=== PATIENT | female | born 1950 | race Caucasian/White ===

== ENCOUNTER → 2017-01-09 | Outpatient (CLI) | payer MEDICARE, OTHER ==
--- NOTE | 2017-01-09 16:18 | REP ---
Low-dose lung cancer screening chest CT without contrast: History: Tobacco use. Comparison chest x-ray May 01, 2016. CT findings: There are a few emphysematous bullae in each lung apex, right more so than left. There is a granulomatous calcification in the right upper lobe laterally. There is a 3 mm noncalcified nodule in the left lower lobe on image #69 of 103 of today's exam. This merits interval follow-up. There is a second right upper lobe granulomatous calcification seen. No other noncalcified pulmonary nodule is noted. No mass lesion is seen. No endobronchial abnormality is observed. Impression: Positive, abnormal lung cancer screening chest CT. 3 mm noncalcified pulmonary nodule in the left lower lobe. LUNG RADS category II. Follow-up chest CT study recommended by [employer] criteria in 1 year. Signed by Quang Peralta MD 01/09/2017 05:01 P
== END ==
LOC: M RAD 13:15
PROVIDERS: ATTEND Nurse Practitioner Family
DX: Z12.2 Encounter for screening for malignant neoplasm of respiratory organs (principal); R91.8 Other nonspecific abnormal finding of lung field; Z87.891 Personal history of nicotine dependence

== ENCOUNTER → 2017-01-20 | Outpatient (CLI) | payer MEDICARE ==
--- NOTE | 2017-01-21 09:00 | DEXA ---
AP SPINE L1 - L4 0.921 -2.2 -0.2 LT FEMUR TOTAL 0.610 -3.2 -1.6 RT FEMUR TOTAL 0.596 -3.3 -1.7 TOTAL BODY TOTAL OTHER DUAL FEMUR FRAX* ASSESSMENT Risk factors: Tobacco use, premature menopause. 10 year probability of fracture Major osteoporotic fracture 16.1 % Hip fracture 7.2 % COMMENTS: There is low bone density of the spine. There is osteoporosis of the hips. The decreased density of the spine does represent a significant change. The decreased density of the left hip does represent a significant change. The decreased density of the right hip does represent a significant change. The density of the spine has decreased 16.2% since the initial exam on 08/2000. The spine density has decreased 4.8% since the most recent exam on 06/2010. The density of the left hip has decreased 26.8% since the initial exam on 1999. The density of the left hip has decreased 13.0% since the most recent exam on . The density of the right hip has decreased 29.5% since the initial exam on 1999. The density of the right hip has decreased 15.2% since the most recent exam on 06/2010. FOLLOW-UP: Recommendation for the next bone density exam: 2 years. LAURA
== END ==
LOC: M WHC 08:47
PROVIDERS: ATTEND Nurse Practitioner Family
DX: M85.89 Other specified disorders of bone density and structure, multiple sites (principal); Z78.0 Asymptomatic menopausal state

== ENCOUNTER → 2017-01-22 | Outpatient (REF) | payer MEDICARE ==
[2017-01-22 11:28] LABS: ALBUMIN 3.8 GM/DL (3.2-5.2); ALBUMIN/GLOBULIN RATIO 1.23 (1.00-1.93); BILIRUBIN,TOTAL 0.7 MG/DL (0.2-1.0); CALCIUM LEVEL 9.5 MG/DL (8.8-10.2); CREATININE FOR GFR 1.26 MG/DL (0.55-1.02); GLOMERULAR FILTRATION RATE 45.2 (>45); POTASSIUM SERUM 4.6 MEQ/L (3.5-5.1); TOTAL PROTEIN 6.9 GM/DL (6.4-8.2)
== END ==
LOC: M SFHCPLAZ 08:14
PROVIDERS: ATTEND Nurse Practitioner Family
DX: I10 Essential (primary) hypertension (principal); E78.2 Mixed hyperlipidemia; E55.9 Vitamin D deficiency, unspecified

== ENCOUNTER → 2017-11-24 | Outpatient (REF) | payer MEDICARE ==
[2017-11-24 12:16] LABS: TOTAL 25(OH) VITAMIN D 24.5 NG/ML (30.0-100.0)
[2017-11-24 12:41] LABS: ALBUMIN 3.6 GM/DL (3.2-5.2); ALBUMIN/GLOBULIN RATIO 1.16 (1.00-1.93); ALKALINE PHOSPHATASE 92 U/L (45-117); ALT/SGPT 18 U/L (12-78); ANION GAP 7 MEQ/L (8-16); AST/SGOT 20 U/L (7-37); BILIRUBIN,TOTAL 0.6 MG/DL (0.2-1.0); BLOOD UREA NITROGEN 26 MG/DL (7-18); CARBON DIOXIDE LEVEL 27 MEQ/L (21-32); CHLORIDE LEVEL 107 MEQ/L (98-107); CHOLESTEROL LEVEL 233 MG/DL (<200); CHOLESTEROL RISK RATIO 3.106 (<5); FREE T4 1.22 NG/DL (0.76-1.46); GLOMERULAR FILTRATION RATE 47.7 (>45); GLUCOSE, FASTING 89 MG/DL (70-100); HDL CHOLESTEROL 75 MG/DL (>40); LDL CHOLESTEROL 142.8 MG/DL (<100); NON-HDL-C 158 MG/DL; POTASSIUM SERUM 4.7 MEQ/L (3.5-5.1); SODIUM LEVEL 141 MEQ/L (136-145); TOTAL PROTEIN 6.7 GM/DL (6.4-8.2); TRIGLYCERIDES LEVEL 76 MG/DL (<150)
== END ==
LOC: M SFHCPLAZ 07:56
DX: I10 Essential (primary) hypertension (principal); E78.2 Mixed hyperlipidemia; E55.9 Vitamin D deficiency, unspecified
CPT/HCPCS: 84443

== ENCOUNTER → 2018-01-12 | Outpatient (CLI) | payer MEDICARE | LOC: M RAD 13:25 | DX: R91.1 Solitary pulmonary nodule (principal) | CPT/HCPCS: 71250 ==

== ENCOUNTER → 2020-10-07 | Outpatient (CLI) | payer MEDICARE | LOC: M LABSMTC 08:22 | PROVIDERS: ATTEND Family Medicine | DX: Z20.822 Contact with and (suspected) exposure to COVID-19 (principal) ==

== ENCOUNTER → 2020-11-24 | Outpatient (REF) | payer MEDICARE ==
[2020-11-24 12:36] LABS: ALBUMIN 3.9 GM/DL (3.2-5.2); BILIRUBIN,TOTAL 0.4 MG/DL (0.2-1.0); CALCIUM LEVEL 9.4 MG/DL (8.8-10.2); CHOLESTEROL RISK RATIO 3.433 (<5); CREATININE FOR GFR 1.21 MG/DL (0.55-1.30); FREE T4 1.13 NG/DL (0.76-1.46); GLOMERULAR FILTRATION RATE 46.8 (>39); POTASSIUM SERUM 5.4 MEQ/L (3.5-5.1); THYROID STIMULATING HORMONE 0.892 uIU/ML (0.358-3.740); TOTAL 25(OH) VITAMIN D 31.1 NG/ML (30.0-100.0); TOTAL PROTEIN 6.7 GM/DL (6.4-8.2)
[2020-11-24 12:42] LABS: MAU/CREAT RATIO 129.7 MCG/MG (0.0-30.0)
== END ==
LOC: M PLALAB 08:17
PROVIDERS: ATTEND Nurse Practitioner Family
DX: I12.9 Hypertensive chronic kidney disease with stage 1 through stage 4 chronic kidney disease, or unspecified chronic kidney disease (principal); F41.1 Generalized anxiety disorder; E78.2 Mixed hyperlipidemia; N18.31 Chronic kidney disease, stage 3a; E55.9 Vitamin D deficiency, unspecified

== ENCOUNTER → 2020-12-05 | Outpatient (REF) | payer MEDICARE ==
[2020-12-05 11:31] LABS: CALCIUM LEVEL 9.9 MG/DL (8.8-10.2); CREATININE FOR GFR 1.18 MG/DL (0.55-1.30); GLOMERULAR FILTRATION RATE 48.2 (>39); POTASSIUM SERUM 4.5 MEQ/L (3.5-5.1)
== END ==
LOC: M SFHCPLAZ 08:28
PROVIDERS: ATTEND Nurse Practitioner Family
DX: E87.5 Hyperkalemia (principal)

== ENCOUNTER → 2020-12-12 | Outpatient (CLI) | payer MEDICARE ==
--- NOTE | 2020-12-12 09:29 | REP ---
INDICATION: CIGARETTE NICOTINE DEPENDENCE. COMPARISON: Low-dose lung screening chest CT dated 01/09/[address] without IV contrast dated 01/12/2018. TECHNIQUE: The study is performed without IV contrast. Images are presented at lung windowing only. FINDINGS: The known left lower lobe lung nodule is again identified on image 70. It is unchanged in size from both prior studies again measuring 3.5 mm in diameter. Maximal Hounsfield density of this nodule today is 272 units compatible with a calcifying nodule. This is a category 2 lung nodule with the probability of malignancy less than 1%. There is a calcified granuloma laterally in the right upper lobe on image 42, unchanged from both prior studies. There is a calcified granuloma anteriorly in the left upper lobe on image 39, unchanged from both prior studies. There is a tiny noncalcified 2 mm nodule anteriorly in the right upper lobe on image 28, unchanged from both prior studies. This is a category 2 lung nodule with the probability of malignancy less than 1%. IMPRESSION: There are multiple small lung nodules as described, all category 2 lung nodules with the probability of malignancy less than 1%. There are calcified granulomas as described. These are also category 2 lung nodules with the probability of malignancy less than 1%. There are no new lung nodules or masses. There are no infiltrates or effusions. Overall this is a category 2 low-dose lung screening CT of the chest with the probability of malignancy less than 1%. Depending on risk factors consider continued follow-up annual low-dose lung screening chest CT. <Electronically signed by Humberto Flood > 12/12/20 [id number]
== END ==
LOC: M RAD 08:13
PROVIDERS: ATTEND Nurse Practitioner Family
DX: Z12.2 Encounter for screening for malignant neoplasm of respiratory organs (principal); F17.210 Nicotine dependence, cigarettes, uncomplicated

== ENCOUNTER → 2021-01-01 | Outpatient (CLI) | payer MEDICARE ==
--- NOTE | 2021-01-01 14:57 | REPMRS ---
Patient History The patient states she has not had a clinical breast exam in over a year. No known family history of cancer. 3D TOMOSYNTHESIS WAS PERFORMED. [facility] lifetime risk for breast cancer is 2.2%. Volpara breast density C. Digital Woman Screen Mammo: January 01, 2021 - Exam #: [id number] Bilateral CC and MLO view(s) were taken. Technologist: Ping Tyson, Technologist Prior study comparison: January 07, 2018, digital woman screen mammo performed at [facility]. July 02, 2016, digital woman screen mammo performed at [facility]. FINDINGS: The breast tissue is heterogeneously dense. This may lower the sensitivity of mammography. There has been no change in the appearance of the mammogram from the prior studies. There is a moderate amount of residual fibroglandular tissue which is fairly symmetric. There is no interval development of dominant mass, areas of architectural distortion, or clustered microcalcification typical of malignancy. Assessment: BI-RADS/ACR category 1 mammogram. Negative Mammogram. Recommendation Routine screening mammogram in 1 year (for women over age 40). This mammogram was interpreted with the aid of an FDA-approved computer-aided dectection system. Electronically Signed By: Humberto Beverly MD 01/01/21 [id number]
--- NOTE | 2021-01-01 18:18 | DEXAMM ---
INDICATION: M81.0 OSTEOPOROSIS. COMPARISON: 01/20/2017 as well as other prior exams. TECHNIQUE: Bone density was measured using dual-energy x-ray absorptiometry (DEXA). FINDINGS: AP SPINE L1-L4 BMD 0.906 g/cm2 Young Adult T-Score -2.3 Age Matched Z-Score -0.7. LT FEMUR, TOTAL BMD 0.568 g/cm2 Young Adult T-Score -3.5 Age Matched Z-Score -2.0. LT NECK BMD 0.592 g/cm2 Young Adult T-Score -3.2 Age Matched Z-Score -1.5. RT FEMUR, TOTAL BMD 0.573 g/cm2 Young Adult T-Score -3.4 Age Matched Z-Score -2.0. RT NECK BMD 0.632 g/cm2 Young Adult T-Score -2.9 Age Matched Z-Score -1.2. IMPRESSION: There is low bone density of the spine. There is osteoporosis of the left hip. There is osteoporosis of the right hip. The density of the spine has decreased 17.6% since the initial exam on 09/11/2000. The density of the spine decreased 1.6% since most recent exam on 01/20/2017. The density of the left hip has decreased 31.8% since initial exam on 09/11/2000. The density of the left hip has decreased 6.9% since most recent exam on 01/20/2017. The density of the right hip has decreased 32.2% since the initial exam on 09/11/2000. The density of the right hip has decreased 3.9% since the most recent exam on 01/20/2017. FOLLOW-UP: Recommendation for the next bone density exam: 2 years. <Electronically signed by Humberto Beverly > 01/01/21 [id number]
== END ==
LOC: M WHC 12:50
PROVIDERS: ATTEND Nurse Practitioner Family
DX: Z12.31 Encounter for screening mammogram for malignant neoplasm of breast (principal); M81.0 Age-related osteoporosis without current pathological fracture

== ENCOUNTER → 2021-04-12 | Outpatient (CLI) | payer MEDICARE ==
[~2021-04-12] MED LIST: QUIN1TAB3 PO
== END ==
LOC: M LABSMTC 10:16
PROVIDERS: ATTEND Anesthesiology
DX: Z01.812 Encounter for preprocedural laboratory examination (principal); Z20.828 Contact with and (suspected) exposure to other viral communicable diseases

== ENCOUNTER 2021-04-17 07:36 | Day surgery (SDC) | payer MEDICARE ==
[~2021-04-17] VITALS: Ht 162.6 cm; Wt 50.3 kg
[~2021-04-17 07:36] MED LIST changes: +NS 1,000 ML IV SCH
[2021-04-17] MEDS ORDERED: propofoL 200 MG/20 ML VIAL As Ordered ONE ×2 (08:47→09:04)
[2021-04-17] MEDS ORDERED: LIDOCAINE 2% 100MG/5ML SDV (FOR ANES.) As Ordered ONE (08:47)
--- NOTE | 2021-04-17 09:28 | ROOR ---
Patient Name: Lizzie Wills Procedure Date: 04/17/2021 8:53 AM Date of : 1950 Age: 70 Room: [facility] Gender: Female Note Status: Finalized Procedure: Colonoscopy Indications: High risk colon cancer surveillance: Personal history of colonic polyps, Incidental constipation noted Providers: Feliz Holt MD Referring MD: Anna Breaux NP Requesting Provider: Medicines: Monitored Anesthesia Care Complications: No immediate complications. Procedure: Pre-Anesthesia Assessment: - The heart rate, respiratory rate, oxygen saturations, blood pressure, adequacy of pulmonary ventilation, and response to care were monitored throughout the procedure. The Colonoscope was introduced through the anus and advanced to the cecum, identified by appendiceal orifice and ileocecal valve. The colonoscopy was performed without difficulty. The patient tolerated the procedure well. The quality of the bowel preparation was good. Findings: The perianal and digital rectal examinations were normal. -8-10 mm likely pilonidal cyst with draining/expressible pus, just at coccyx. Five sessile and semi-pedunculated polyps were found in the sigmoid colon, splenic flexure, ascending colon and cecum. The polyps were 4 to 8 mm in size. These polyps were removed with a cold snare. Resection and retrieval were complete. Internal hemorrhoids were found during retroflexion. The hemorrhoids were medium-sized. The exam was otherwise without abnormality on direct and retroflexion views. Impression: - -8-10 mm likely pilonidal cyst with draining/expressible pus, just at coccyx. - Five 4 to 8 mm polyps in the sigmoid colon, at the splenic flexure, in the ascending colon and in the cecum, removed with a cold snare. Resected and retrieved. - Internal hemorrhoids. - The examination was otherwise normal on direct and retroflexion views. Recommendation: - Augmentin (amoxicillin/clavulanate) 500 mg PO q 8 hr for 10 days. - (the script was sent to your pharmacy on file) - Telephone endoscopist for pathology results in 2 weeks. - Repeat colonoscopy in 3 years for surveillance. - Start antibiotics for the draining cyst. Please follow up with your PCP in the next few days if cyst getting worse, or does not resolve with antibiotic therapy. (consider surgical excision) Procedure Code(s): --- Professional --- 93192, Colonoscopy, flexible; with removal of tumor(s), polyp(s), or other lesion(s) by snare technique Diagnosis Code(s): --- Professional --- K63.5, Polyp of colon K64.8, Other hemorrhoids Z86.010, Personal history of colonic polyps CPT copyright 2019 [employer]. All rights reserved. The codes documented in this report are preliminary and upon inspector wire rope review may be revised to meet current compliance requirements. Feliz Holt MD Feliz Holt MD 04/17/2021 9:28:20 AM Electronically signed by Feliz Holt MD Number of Addenda: 0 Note Initiated On: 04/17/2021 8:53 AM Estimated Blood Loss: Estimated blood loss: none.
[2021-04-17 09:40] VITALS: BP 155/77
== END 2021-04-17 09:46 | disposition home or self-care (01) ==
LOC: M OPP 07:36
PROVIDERS: ATTEND Internal Medicine Gastroenterology
DX: Z12.11 Encounter for screening for malignant neoplasm of colon (principal); Z86.010 Personal history of colon polyps; D12.2 Benign neoplasm of ascending colon; D12.3 Benign neoplasm of transverse colon; D12.5 Benign neoplasm of sigmoid colon; K64.8 Other hemorrhoids; F17.210 Nicotine dependence, cigarettes, uncomplicated; Z79.899 Other long term (current) drug therapy; Z88.1 Allergy status to other antibiotic agents; Z88.2 Allergy status to sulfonamides

== ENCOUNTER → 2021-12-25 | Outpatient (CLI) | payer MEDICARE ==
[~2021-12-25] MED LIST changes: -NS 1,000 ML IV SCH
== END ==
LOC: M WHC 07:06
PROVIDERS: ATTEND Physician Assistant
DX: Z12.31 Encounter for screening mammogram for malignant neoplasm of breast (principal); Z53.9 Procedure and treatment not carried out, unspecified reason

== ENCOUNTER → 2022-01-29 | Outpatient (CLI) | payer MEDICARE ==
[2022-01-29 11:07] LABS: BASO % 0.6 % (0.0-1.0); EOS # 0.1 10^3/uL (0.0-0.5); EOS % 1.5 % (0.0-3.0); HEMATOCRIT 42.4 % (36.0-47.0); HEMOGLOBIN 13.7 g/dl (12.0-15.5); LYMPH % 31.2 % (24.0-44.0); MEAN CORPUSCULAR HEMOGLOBIN 31.7 pg (27.0-33.0); MEAN CORPUSCULAR HGB CONC 32.3 g/dl (32.0-36.5); MEAN CORPUSCULAR VOLUME 98.1 fl (80.0-96.0); MONO # 0.4 10^3/uL (0.0-0.8); MONO % 5.5 % (2.0-8.0); NEUTROPHILS % 60.9 % (36.0-66.0); PLATELET COUNT, AUTOMATED 230 10^3/uL (150-450); RED BLOOD COUNT 4.32 10^6/uL (4.00-5.40); WHITE BLOOD COUNT 6.5 10^3/uL (4.0-10.0)
[2022-01-29 11:43] LABS: CREATININE, URINE 48.5 MG/DL; MAU/CREAT RATIO 220.6 MCG/MG (0.0-30.0)
[2022-01-29 11:46] LABS: ALBUMIN 3.9 GM/DL (3.2-5.2); BILIRUBIN,TOTAL 0.8 MG/DL (0.2-1.0); CALCIUM LEVEL 9.6 MG/DL (8.8-10.2); CHOLESTEROL RISK RATIO 3.127 (<5); CREATININE FOR GFR 1.22 MG/DL (0.55-1.30); FREE T4 1.16 NG/DL (0.76-1.46); GLOMERULAR FILTRATION RATE 46.3 (>39); POTASSIUM SERUM 4.8 MEQ/L (3.5-5.1); THYROID STIMULATING HORMONE 0.775 uIU/ML (0.358-3.740); TOTAL 25(OH) VITAMIN D 28.1 NG/ML (30.0-100.0)
== END ==
LOC: M RAD 09:00
PROVIDERS: ATTEND Physician Assistant
DX: Z12.2 Encounter for screening for malignant neoplasm of respiratory organs (principal); E78.2 Mixed hyperlipidemia; N18.31 Chronic kidney disease, stage 3a; E55.9 Vitamin D deficiency, unspecified; I12.9 Hypertensive chronic kidney disease with stage 1 through stage 4 chronic kidney disease, or unspecified chronic kidney disease; J43.9 Emphysema, unspecified; J47.9 Bronchiectasis, uncomplicated; J84.10 Pulmonary fibrosis, unspecified; F17.210 Nicotine dependence, cigarettes, uncomplicated

== ENCOUNTER → 2022-07-10 | Outpatient (CLI) | payer MEDICARE ==
[~2022-07-10] MED LIST changes: +ALPR0.25 PO
== END ==
LOC: M LABSMTC 10:31
PROVIDERS: ATTEND Anesthesiology
DX: Z01.812 Encounter for preprocedural laboratory examination (principal); Z20.822 Contact with and (suspected) exposure to COVID-19

== ENCOUNTER 2022-07-15 07:30 | Day surgery (SDC) | payer MEDICARE ==
[~2022-07-15] VITALS: Ht 162.6 cm; Wt 48.1 kg
[~2022-07-15 07:30] MED LIST changes: +CEFUROXIME 1MG/0.1ML INTRACAMERAL INJ As Ordered ONE; +DUOVISC (0.50ML VISCOAT/0.85ML PROVISC) OPHTH KIT As Ordered ONE; +LIDOCAINE 1% SDV 5ML VIAL As Ordered ONE; +MIDAZOLAM INJ 2MG/2ML VIAL (J2250 PER 1MG) As Ordered ONE; +POVIDONE-IODINE 5% OPHTH PREP SOL 30ML As Ordered ONE
[2022-07-15 09:28] VITALS: BP 177/84
[2022-07-15] MEDS ORDERED: TROPICAMIDE 1% OPHTH SOLN 2ML OS SCH (09:50)
[2022-07-15] MEDS ORDERED: PHENYLEPHRINE 2.5% OPHTH SOL 2ML OS SCH (09:50)
[2022-07-15] MEDS ORDERED: LIDOCAINE 3.5 % 1ML OPHTH TOPICAL GEL OU ONE (09:50)
[2022-07-15] MEDS ORDERED: OFLOXACIN 0.3 % (OCUFLOX) OPTH SOL 5ML OS ONE (09:50)
[2022-07-15] MEDS ORDERED: PHENYLEPHRINE HCL 10 % OPHTH. SOL 5ML OS PRN (09:50)
[2022-07-15] MEDS ORDERED: BSS IRRIG/VANCO(10MG)/TOBRA(5MG)/EPINEPH(1:1000-0.5CC)500ML BAG-ORONLY IR ONE (09:50)
[2022-07-15] MEDS ORDERED: CYCLOPENTOLATE 1% OPHTH SOLN 2 ML BTL OS SCH (09:50)
== END 2022-07-15 09:44 | disposition home or self-care (01) ==
LOC: M SDC 07:30
PROVIDERS: ATTEND Ophthalmology
DX: H25.12 Age-related nuclear cataract, left eye (principal); I10 Essential (primary) hypertension; F41.9 Anxiety disorder, unspecified; F17.210 Nicotine dependence, cigarettes, uncomplicated; Z79.899 Other long term (current) drug therapy; Z88.2 Allergy status to sulfonamides; Z88.1 Allergy status to other antibiotic agents
CPT/HCPCS: 66984; J0697; J2250; V2632

== ENCOUNTER 2022-08-02 18:00 | Emergency (ER) | payer MEDICARE ==
[~2022-08-02] VITALS: Ht 162.6 cm; Wt 47.5 kg
[~2022-08-02 18:00] MED LIST changes: -CEFUROXIME 1MG/0.1ML INTRACAMERAL INJ As Ordered ONE; -DUOVISC (0.50ML VISCOAT/0.85ML PROVISC) OPHTH KIT As Ordered ONE; -LIDOCAINE 1% SDV 5ML VIAL As Ordered ONE; -MIDAZOLAM INJ 2MG/2ML VIAL (J2250 PER 1MG) As Ordered ONE; -POVIDONE-IODINE 5% OPHTH PREP SOL 30ML As Ordered ONE
[2022-08-03 02:55] LABS: BASO % 0.4 % (0.0-1.0); EOS # 0.1 10^3/uL (0.0-0.5); EOS % 0.9 % (0.0-3.0); HEMATOCRIT 34.2 % (36.0-47.0); HEMOGLOBIN 11.4 g/dl (12.0-15.5); LYMPH # 2.7 10^3/uL (1.5-5.0); LYMPH % 24.9 % (24.0-44.0); MEAN CORPUSCULAR HEMOGLOBIN 32.4 pg (27.0-33.0); MEAN CORPUSCULAR HGB CONC 33.3 g/dl (32.0-36.5); MEAN CORPUSCULAR VOLUME 97.2 fl (80.0-96.0); MONO # 0.8 10^3/uL (0.0-0.8); MONO % 7.7 % (2.0-8.0); NEUTROPHILS # 7.1 10^3/uL (1.5-8.5); NEUTROPHILS % 65.7 % (36.0-66.0); PLATELET COUNT, AUTOMATED 361 10^3/uL (150-450); RED BLOOD COUNT 3.52 10^6/uL (4.00-5.40); WHITE BLOOD COUNT 10.7 10^3/uL (4.0-10.0)
[2022-08-03 03:28] LABS: CALCIUM LEVEL 9.3 MG/DL (8.8-10.2); CREATININE FOR GFR 1.2 MG/DL (0.55-1.30); GLOMERULAR FILTRATION RATE 47.1 (>39); POTASSIUM SERUM 4.4 MEQ/L (3.5-5.1)
[2022-08-03 03:29] LABS: ALBUMIN 3.1 GM/DL (3.2-5.2); BILIRUBIN,DIRECT 0.1 MG/DL (0.0-0.2); BILIRUBIN,TOTAL 0.3 MG/DL (0.2-1.0); TOTAL PROTEIN 6.6 GM/DL (6.4-8.2)
[2022-08-03] MEDS ORDERED: ISOVUE-370 76% 100ML VIAL As Ordered ONE (08:10)
[2022-08-03 08:34] VITALS: BP 152/80
[2022-08-03 08:59] LABS: C REACTIVE PROTEIN QUANTITATIV 7.15 MG/DL (0.00-0.30); RHEUMATOID FACTOR QUANT 26.6 IU/ML (<15.0)
[2022-08-03] MEDS ORDERED: MILKSUS3 PO (09:57)
[2022-08-05 13:07] LABS: ANTINUCLEAR ANTIBODIES DIRECT Negative (Negative)
== END 2022-08-03 10:31 | disposition home or self-care (01) ==
LOC: M ED 18:00
DX: R10.32 Left lower quadrant pain (principal); K59.00 Constipation, unspecified; Z90.49 Acquired absence of other specified parts of digestive tract; Z90.10 Acquired absence of unspecified breast and nipple; Z88.1 Allergy status to other antibiotic agents; Z88.2 Allergy status to sulfonamides; Z88.8 Allergy status to other drugs, medicaments and biological substances; Z79.899 Other long term (current) drug therapy
CPT/HCPCS: 36415; 74177; 80048; 80076; 81000; 83690; 85025; 85652; 86038; 86140; 86431; 99284; Q9967

== ENCOUNTER → 2024-07-30 | Outpatient (CLI) | payer MEDICARE ==
[~2024-07-30] MED LIST changes: +MILKSUS3 PO
== END ==
LOC: M RAD 14:43
PROVIDERS: ATTEND Physician Assistant
DX: Z12.2 Encounter for screening for malignant neoplasm of respiratory organs (principal); F17.210 Nicotine dependence, cigarettes, uncomplicated; J43.9 Emphysema, unspecified; R91.8 Other nonspecific abnormal finding of lung field; I70.0 Atherosclerosis of aorta; I25.10 Atherosclerotic heart disease of native coronary artery without angina pectoris

== ENCOUNTER → 2024-08-11 | Outpatient (CLI) | payer MEDICARE ==
[2024-08-11 15:05] LABS: BASO # 0.1 10^3/uL (0.0-0.2); BASO % 0.6 % (0.0-1.0); EOS # 0.1 10^3/uL (0.0-0.5); EOS % 0.6 % (0.0-3.0); HEMATOCRIT 41.8 % (36.0-47.0); HEMOGLOBIN 13.7 g/dl (12.0-15.5); LYMPH # 1.6 10^3/uL (1.5-5.0); LYMPH % 18.7 % (24.0-44.0); MEAN CORPUSCULAR HEMOGLOBIN 33.1 pg (27.0-33.0); MEAN CORPUSCULAR HGB CONC 32.8 g/dl (32.0-36.5); MONO # 0.4 10^3/uL (0.0-0.8); NEUTROPHILS # 6.7 10^3/uL (1.5-8.5); NEUTROPHILS % 75.9 % (36.0-66.0); PLATELET COUNT, AUTOMATED 276 10^3/uL (150-450); RED BLOOD COUNT 4.14 10^6/uL (4.00-5.40); WHITE BLOOD COUNT 8.8 10^3/uL (4.0-10.0)
[2024-08-11 15:17] LABS: ALBUMIN 3.6 G/DL (3.2-5.2); BILIRUBIN,TOTAL 0.8 MG/DL (0.3-1.2); CALCIUM LEVEL 10.3 MG/DL (8.3-10.6); CHOLESTEROL RISK RATIO 3.34 (<5); CREATININE FOR GFR 1.18 MG/DL (0.55-1.30); GLOMERULAR FILTRATION RATE 47.8 (>39); HDL CHOLESTEROL 79.3 MG/DL (>40); LDL CHOLESTEROL 160.9 MG/DL (<100); NON-HDL-C 185.7 MG/DL; PTH INTACT 73.4 PG/ML (18.5-88.0); TOTAL PROTEIN 7.2 G/DL (5.7-8.2)
[2024-08-11 15:18] LABS: FREE T4 1.58 NG/DL (0.89-1.76); THYROID STIMULATING HORMONE 0.906 uIU/ML (0.55-4.78)
[2024-08-11 15:20] LABS: TOTAL 25(OH) VITAMIN D 40.1 NG/ML (20.0-100.0)
== END ==
LOC: M PLALAB 09:53
PROVIDERS: ATTEND Physician Assistant Medical
DX: K59.00 Constipation, unspecified (principal); E55.9 Vitamin D deficiency, unspecified; I10 Essential (primary) hypertension; E78.2 Mixed hyperlipidemia; F41.1 Generalized anxiety disorder
CPT/HCPCS: 36415; 74021; 80053; 80061; 82306; 83970; 84439; 84443; 85025; G0463

== ENCOUNTER → 2024-09-10 | Outpatient (CLI) | payer MEDICARE | LOC: M WHC 09:22 | PROVIDERS: ATTEND Physician Assistant Medical | DX: Z12.31 Encounter for screening mammogram for malignant neoplasm of breast (principal); M81.0 Age-related osteoporosis without current pathological fracture; R92.323 Mammographic fibroglandular density, bilateral breasts ==

== ENCOUNTER → 2024-09-13 | Outpatient (CLI) | payer MEDICARE | LOC: M PLARAD 12:49 | PROVIDERS: ATTEND Physician Assistant Medical | DX: R91.1 Solitary pulmonary nodule (principal) | CPT/HCPCS: 78815; A9552 ==

== ENCOUNTER → 2024-10-13 | Outpatient (REF) | payer MEDICARE | LOC: M SFHCPLAZ 14:49 | PROVIDERS: ATTEND Physician Assistant Medical | DX: J18.1 Lobar pneumonia, unspecified organism (principal) ==

== ENCOUNTER → 2025-07-06 | Outpatient (CLI) | payer MEDICARE, MEDICAID ==
[2025-07-06 12:39] LABS: BASO # 0.1 10^3/uL (0.0-0.2); BASO % 1.0 % (0.0-1.0); EOS # 0.2 10^3/uL (0.0-0.5); EOS % 2.8 % (0.0-3.0); LYMPH # 1.4 10^3/uL (1.5-5.0); LYMPH % 22.4 % (24.0-44.0); MONO # 0.4 10^3/uL (0.0-0.8); MONO % 6.3 % (2.0-8.0); NEUTROPHILS # 4.1 10^3/uL (1.5-8.5); NEUTROPHILS % 67.2 % (36.0-66.0); PLATELET COUNT, AUTOMATED 238 10^3/uL (150-450)
[2025-07-06 13:15] LABS: ALT/SGPT 19.0 U/L (7.0-40); AST/SGOT 22.0 U/L (<34); CALCIUM LEVEL 9.6 MG/DL (8.3-10.6); CARBON DIOXIDE LEVEL 28.0 MMOL/L (20-31); CHLORIDE LEVEL 105.0 MMOL/L (98-107); CHOLESTEROL LEVEL 249.0 MG/DL (<200); CHOLESTEROL RISK RATIO 3.0 (<5); CREATININE FOR GFR 1.3 MG/DL (0.55-1.30); FREE T4 1.45 NG/DL (0.89-1.76); GLOMERULAR FILTRATION RATE 43.2 (>39); LDL CHOLESTEROL 144.2 MG/DL (<100); NON-HDL-C 166.2 MG/DL; POTASSIUM SERUM 5.0 MMOL/L (3.5-5.1); PTH INTACT 80.5 PG/ML (18.5-88.0); SODIUM LEVEL 140.0 MMOL/L (136-145); TRIGLYCERIDES LEVEL 110.0 MG/DL (<150)
[2025-07-06 13:17] LABS: TOTAL 25(OH) VITAMIN D 36.9 NG/ML (20.0-100.0)
== END ==
LOC: M PLALAB 08:40
PROVIDERS: ATTEND Physician Assistant Medical
DX: F41.1 Generalized anxiety disorder (principal); I10 Essential (primary) hypertension; E55.9 Vitamin D deficiency, unspecified